=== PATIENT | male | born 1975 | race American Indian/Alaskan Native ===

== ENCOUNTER 2022-03-01 14:38 | Emergency (ER) | payer SELFPAY ==
[2022-03-01] MEDS ORDERED: CLINDAMYCIN 300 MG CAP PO ONE (21:04)
[2022-03-01] MEDS ORDERED: SULFAMETHOXAZOLE/TRIMETHOPRIM 800/160MG DS TAB PO ONE (21:04)
[2022-03-01] MEDS ORDERED: IBUPROFEN 600 MG TAB PO ONE (21:04)
--- NOTE | 2022-03-01 21:10 | Emergency Department Report ---
ED General Adult HPI - General Chief complaint: Skin/Abscess/Foreign Body Stated complaint: FACE SWOLLEN ON RT SIDE Source: patient Mode of arrival: Ambulatory Limitations: No Limitations - History of Present Illness MD Complaint: Right cheek swollen painful rash with purulent discharge -: Sudden, week(s) (1) Location: face (right cheek) Radiation: non-radiation Severity scale (0 -10): 6 Quality: aching, sharp Consistency: constant Improves with: none Worsens with: none Associated Symptoms: denies other symptoms, rash (right facial swollen erythematous rash). denies: confusion, chest pain, cough, diaphoresis, fever/chills, headaches, loss of appetite, malaise, seizure, shortness of breath, syncope, weakness - Related Data Previous Rx's Medication Instructions Recorded Last Taken Type Clindamycin [Clindamycin CAP] 300 mg PO Q6H #40 cap 03/01/22 Unknown Rx Ibuprofen [Motrin] 800 mg PO Q8HR PRN #30 tablet 03/01/22 Unknown Rx Allergies Allergy/AdvReac Type Severity Reaction Status Date / Time No Known Allergies Allergy Verified 07/18/15 06:05 ED Review of Systems ROS: Stated complaint: FACE SWOLLEN ON RT SIDE Other details as noted in HPI ED Past Medical Hx - Past Medical History Previous Medical History?: No - Surgical History Past Surgical History?: No - Social History Smoking Status: Never Smoker - Medications Home Medications: Home Medications Medication Instructions Recorded Confirmed Last Taken Type Clindamycin [Clindamycin CAP] 300 mg PO Q6H #40 cap 03/01/22 Unknown Rx Ibuprofen [Motrin] 800 mg PO Q8HR PRN #30 tablet 03/01/22 Unknown Rx ED Physical Exam - General Limitations: No Limitations ED Course Vital Signs 03/01/22 15:20 Temperature 98.9 F Pulse Rate 69 Respiratory 14 Rate Blood Pressure 124/92 O2 Sat by Pulse 100 Oximetry Critical care attestation.: If time is entered above; I have spent that time in minutes in the direct care of this critically ill patient, excluding procedure time. ED Disposition Clinical Impression: Acute folliculitis, Cellulitis of right external cheek Disposition: HOME / SELF CARE / HOMELESS Is pt being admited?: No Does the pt Need Aspirin: No Condition: Stable Instructions: Cellulitis, Adult, [id number], Folliculitis Additional Instructions: Take medication with food, drink plenty of fluids, follow-up with your primary care physician in 7 to 10 days for reevaluation. Return to the ED immediately if symptoms get worse with Prescriptions: Clindamycin [Clindamycin CAP] 300 mg PO Q6H #40 cap Ibuprofen [Motrin] 800 mg PO Q8HR PRN #30 tablet PRN Reason: Pain , Severe (7-10) Referrals: [facility] [Provider Group] - 7-10 days Time of Disposition: 21:08 Print Language: TAMAZIGHT
[2022-03-01 22:32] VITALS: BP 144/76
== END 2022-03-01 22:31 | disposition home or self-care (01) ==
LOC: ED 14:38
DX: L03.211 Cellulitis of face (principal); L73.9 Follicular disorder, unspecified
CPT/HCPCS: 99282